=== PATIENT | male | born 1960 | race Caucasian/White ===

== ENCOUNTER 2024-10-14 04:04 | Day surgery (SDC) | payer OTHER ==
[2024-10-12 12:58] VITALS: BMI 23.1
[2024-10-14] MEDS ORDERED: DEXTROSE 5%-0.45% SALINE 1,000 ML IV SCH (14:30)
[2024-10-14] MEDS ORDERED: MIDAZOLAM HCL 2 MG/2 ML SINGLE DOSE VIAL ONE (14:39)
[2024-10-14] MEDS: ceFAZolin SODIUM 1 GM VIAL IVPB ONE ×2 (14:41)
[2024-10-14] MEDS ORDERED: ceFAZolin SODIUM 1 GM VIAL ONE (14:55)
[2024-10-14] MEDS ORDERED: KETOROLAC TROMETHAMINE 30 MG/1 ML VIAL ONE (15:13)
[2024-10-14 15:34] VITALS: PULSE 66; RESP 18
[2024-10-14 17:10] VITALS: BP 114/77; TEMP 97.5
== END 2024-10-14 17:00 | disposition home or self-care (01) ==
LOC: JASU-SURG 04:04
PROVIDERS: ATTEND Urology
PROC: 0TF3XZZ Fragmentation in Right Kidney Pelvis, External Approach (ICD-10-PCS; principal; 2024-10-14 13:45)
DX: N20.0 Calculus of kidney (principal)